=== PATIENT | female | born 2000 | race Two or more races ===

== ENCOUNTER 2024-09-07 12:20 | Emergency (ER) | payer OTHER, SELFPAY ==
[2024-09-07 12:30] VITALS: BP 139/94; PULSE 98; RESP 18; TEMP 37.1; O2SAT 97; BMI 48.4
--- NOTE | 2024-09-07 12:34 | PD.EDRME ---
Rapid Medical Screening Exam RME Arrival date/time: 09/07/24 12:20 24-year-old female with no known medical history presents to the emergency room with a chief complaint of vaginal spotting and bilateral pelvic pain. Patient is currently 7 weeks she is a G1, P0. I have greeted and performed a focused initial assessment of this patient. A comprehensive ED assessment and evaluation of the patient, analysis of all test results, and completion of the medical decision making process will be conducted by additional ED providers. Chief Complaint: General Adult/Misc Complain Vital signs: Vital Signs Temperature 98.7 F 09/07/24 12:30 Pulse Rate 98 09/07/24 12:30 Respiratory Rate 18 09/07/24 12:30 Blood Pressure 139/94 H 09/07/24 12:30 Pulse Oximetry (%) 97 09/07/24 12:30 Oxygen Delivery Method Room Air 09/07/24 12:30 Vital signs reviewed by provider: Yes
--- NOTE | 2024-09-07 13:09 | XR_ITS ---
Examination: OB Transvaginal ultrasound of the pelvis, complete Technique: Transvaginal sonographic images pelvis performed using jang scale imaging Exam date and time: September 07, 2024 1311 hours INDICATIONS: Vaginal bleeding today, early by history. FINDINGS: Uterus 10.1 cm intrauterine gestational sac 0.8 cm corresponds to 5 weeks 4 days gestational age No pole, no cardiac activity Right ovary 3.0 cm arterial flow Left ovary 3.1 cm arterial flow IMPRESSION: Intrauterine empty gestational sac corresponding to 5 weeks 4 days gestational age Recommend short-term follow-up transvaginal pelvic viability sonography to confirm.
[2024-09-07 13:40] LABS: Alanine Aminotransferase 30 U/L (10-49); Albumin, Serum 4.6 gm/dL (3.5-5.0); Albumin/Globulin Ratio 1.6 (1.2-2.2); Alkaline Phosphatase 80 U/L (46-116); Anion Gap 6 (7-16); Aspartate Amino Transferase 24 U/L (0-34); BUN/Creatinine Ratio 15 Ratio (12-20); Bilirubin,Total 1.6 mg/dL (0.3-1.2); Blood Urea Nitrogen 12 mg/dL (9-23); Calcium 8.8 mg/dL (8.3-10.6); Calcium (Corrected) 8.8 mg/dL (8.5-10.1); Carbon Dioxide 25.2 mMol/L (20.0-31.0); Chloride 106 mMol/L (98-107); Creatinine (Component) 0.8 mg/dL (0.6-1.3); Estimated Creatinine Clearance 161.9 mL/min (>60); Globulin 2.9 gm/dL (2.3-3.5); Glucose 96 mg/dL (74-106); Osmolality,Calculated 273 (275-295); Sodium 137 mMol/L (136-145); Total Protein 7.5 gm/dL (5.7-8.2); eGFR > 60 See Note
[2024-09-07 13:47] LABS: Basophils % (Auto) 0 % (0-2.5); Eosinophils # (Auto) 0.1 Thou/mm3 (0.0-0.5); Eosinophils % (Auto) 1 % (0-10); Hematocrit 37.2 % (36.0-46.0); Hemoglobin 12.4 g/dL (12.0-16.0); Immature Granulocytes % (Auto) 0 % (0-0); Immature Granulocytes Auto 0.03 Thou/mm3 (0.00-0.00); Lymphocytes # (Auto) 1.9 Thou/mm3 (1.0-4.8); Lymphocytes % (Auto) 20 % (10-50); Mean Corpuscular HGB Conc 33.3 g/dl (31.0-37.0); Mean Corpuscular Volume 75 fL (80-100); Monocytes # (Auto) 0.6 Thou/mm3 (0.0-0.8); Monocytes % (Auto) 6 % (0-12); Neutrophils # (Auto) 6.7 Thou/mm3 (1.8-7.7); Neutrophils % (Auto) 72 % (37-80); Nucleated Red Blood Cell % 0 /100 WBC (0); Platelet Count 336 Thou/mm3 (140-440); RDW Standard Deviation 45.5 fL (36.4-46.3); Red Blood Count 4.96 Miln/mm3 (4.00-5.20); White Blood Count 9.3 Thou/mm3 (3.6-11.0)
[2024-09-07 13:53] LABS: Beta HCG,Quantitative 5237 mIU/mL (<5.0)
[2024-09-07 14:02] LABS: Collection Type, Urine Clean Catch
[2024-09-07 14:16] LABS: Bilirubin,Urine Negative (Negative); Blood,Urine 3+ (Negative); Clarity,Urine Clear (Clear/Hazy); Color,Urine Lt-Yellow (Lt Yel-Yel); Glucose, Urine Negative (Negative); Ketones,Urine Trace (Negative); Leukocyte Esterase,Urine Negative (Negative); Nitrite,Urine Negative (Negative); PH,Urine 6.5 (5.0-7.0); Protein,Urine Trace (Neg - Trace); RBC,Urine 2 /hpf (0-3); Specific Gravity,Urine 1.014 (1.001-1.035); Squamous Epithelial Cell,Urine 1 /hpf (0-5); Urobilinogen,Urine Negative mg/dL (0.0-1.0); WBC,Urine 4 /hpf (0-5)
--- NOTE | 2024-09-07 18:19 | EDNOTE_ITS ---
ED General RME/HPI General Chief complaint: General Adult/Misc Complain Stated complaint: Cramping and spotting for 2 hours 7 weeks Time Seen by Provider: 09/07/24 17:52 Arrival date/time: 09/07/24 12:20 24-year-old female with no known medical history presents to the emergency room with a chief complaint of vaginal spotting and bilateral pelvic pain. Patient is currently 7 weeks she is a G1, P0. Limitations: no limitations RME / HPI RME / HPI narrative: 09/07/24 12:20 24-year-old female with no known medical history presents to the emergency room with a chief complaint of vaginal spotting and bilateral pelvic pain. Patient is currently 7 weeks she is a G1, P0. I have greeted and performed a focused initial assessment of this patient. A comprehensive ED assessment and evaluation of the patient, analysis of all test results, and completion of the medical decision making process will be conducted by additional ED providers. Related Data Allergies Allergy/AdvReac Type Severity Reaction Status Date / Time vancomycin Allergy Verified 09/07/24 12:22 Review of Systems Review of Systems Systems Reviewed: All systems reviewed, normal except as documented Constitutional Constitutional: Reports system reviewed and no additional complaints, except as documented, Denies fever(s) and Denies headache(s) Eyes Eyes: Reports system reviewed and no additional complaints, except as documented and Denies blurry vision ENT Ears, Nose, Mouth, and Throat: Reports system reviewed and no additional complaints, except as documented, Denies headache(s), Denies nasal congestion and Denies nasal discharge Cardiovascular Cardiovascular: Reports system reviewed and no additional complaints, except as documented, Denies chest pain and Denies dyspnea Respiratory Respiratory: Reports system reviewed and no additional complaints, except as documented, Denies chest congestion, Denies cough and Denies dyspnea Gastrointestinal Gastrointestinal: Reports system reviewed and no additional complaints, except as documented and Denies abdominal pain Genitourinary Genitourinary: Reports system reviewed and no additional complaints, except as documented, Reports abnormal vaginal bleeding and Reports pelvic pain Integumentary/Breasts Skin/Breast: Reports system reviewed and no additional complaints, except as documented and Denies rash Neurologic Neurologic: Reports system reviewed and no additional complaints, except as documented, Reports as per HPI and Denies headache(s) Past Medical History Social History SMOKING STATUS: Never smoker ED Exam General Limitations: Present no limitations General appearance: Present alert and in no apparent distress Head Head exam: Present atraumatic and normocephalic Eye Eye exam: Present normal appearance, PERRL and EOMI; Absent conjunctival injection ENT ENT exam: Present normal exam, normal oropharynx and mucous membranes moist Neck Neck exam: Present normal inspection, full ROM and trachea midline Chest Chest inspection: Present normal inspection and symmetric chest wall rise Respiratory Respiratory exam: Present normal lung sounds bilaterally; Absent respiratory distress Cardiovascular Cardiovascular exam: Present regular rate, normal rhythm and normal heart sounds Abdominal Exam Abdominal exam: Present soft and normal bowel sounds; Absent distention, tenderness, guarding, rebound or rigidity Extremities Exam Extremities exam: Present normal inspection and full ROM Back Exam Back exam: Present normal inspection and full ROM Neurological Exam Neurological exam: Present alert, oriented X3 and CN II-XII intact Psychiatric Psychiatric exam: Present normal affect and normal mood Skin Skin exam: Present warm, dry, intact and normal color Course Quality Measures none Orders Category Date Time Status US OB transvaginal Stat Exams 09/07/24 13:09 Completed ABO/RH Type Stat Lab 09/07/24 12:46 Completed Beta HCG,Quantitative Stat Lab 09/07/24 12:46 Completed CBC Stat Lab 09/07/24 12:46 Completed CMP [Comprehensive Metabolic Panel] Stat Lab 09/07/24 12:46 Completed UA [Urinalysis] Stat Lab 09/07/24 13:40 Completed Vital Signs Vital signs: Vital Signs Temperature 98.7 F 09/07/24 12:30 Pulse Rate 98 09/07/24 12:30 Respiratory Rate 18 09/07/24 12:30 Blood Pressure 139/94 H 09/07/24 12:30 Pulse Oximetry (%) 97 09/07/24 12:30 Oxygen Delivery Method Room Air 09/07/24 12:30 O2 saturation 97% on room air within normal limits Discharge Plan Plan Patient Disposition: HOME (Self Care) Discharge Disposition comment: Stable Prescriptions/Referrals Referrals: Malika Brunson PA-C [Primary Care Provider] - 09/10/24 Problem List Clinical Impression: , threatened Patient/Caregiver Discharge Instructions Education Materials: ED Possible Miscarriage ... Additional Instructions: Please follow-up in 5 to 7 days for repeat lab work and ultrasound for worsening symptoms or concerns return immediately Print Language: Italian Stand Alone Forms: [employer] Info., Work/School Release, Patient Portal Info Letter PA/ROMIE Supervising Physician KI/ROMIE Supervising Physician: Dr. benedict MDM Narrative MDM hospital course (for use when minimal MDM required): 24-year-old female with no known medical history presents to the emergency room with a chief complaint of vaginal spotting and bilateral pelvic pain. Patient is currently 7 weeks she is a G1, P0. On exam patient well-appearing patient is not appear ill or toxic no acute distress Lab work and imaging reviewed by me no acute emergent findings noted Explained to the patient she needs to have repeat lab work and imaging in 5 to 7 days for worsening symptoms return immediately ???Contact patient after discharge explained to her that she has a negative if she requires RhoGAM instructed the patient to return for repeat dose patient states that she will return and understands the reason for returning. Clinical Information Provided by: patient Medical Records reviewed None Meds/Rx considered, not ordered None Labs/Rad/Tests considered, not ordered Describe: Ordered and reviewed by me Chronic Illness/Social Conditions which may negatively complicate care or outcome(s)-explain: None or not applicable EKG EKG not done Labs Labs: Interpreted by me Imaging Imaging Interpretation(s): Reviewed by me Medication Administration(s) none Diagnosis Differential Diagnosis ED Complaint MDM: Missed , threatened , vaginal bleeding
== END 2024-09-07 18:28 | disposition home or self-care (01) ==
PROVIDERS: Nurse Practitioner Family; Emergency Provider Family Medicine; PCP Physician Assistant
DX: O20.0 Threatened abortion (principal); Z3A.01 Less than 8 weeks gestation of pregnancy
CPT/HCPCS: 36415; 76817; 80053; 81001; 84702; 85025; 86900; 86901; 99284

== ENCOUNTER 2024-09-08 08:10 | Emergency (ER) | payer OTHER, SELFPAY ==
--- NOTE | 2024-09-08 08:17 | PD.EDADULT ---
ED General RME/HPI General Chief complaint: General Adult/Misc Complain Stated complaint: NEEDS RHOGAM SHOT Time Seen by Provider: 09/08/24 08:11 Arrival date/time: 09/08/24 08:10 24-year-old female who was found to be at last visit presents department today for RhoGAM injection I saw the patient yesterday and instructed to return today for RhoGAM injection Limitations: no limitations Related Data Allergies Allergy/AdvReac Type Severity Reaction Status Date / Time vancomycin Allergy Verified 09/08/24 08:12 Review of Systems Review of Systems Systems Reviewed: All systems reviewed, normal except as documented Constitutional Constitutional: Reports system reviewed and no additional complaints, except as documented, Denies fever(s) and Denies headache(s) Eyes Eyes: Reports system reviewed and no additional complaints, except as documented and Denies blurry vision ENT Ears, Nose, Mouth, and Throat: Reports system reviewed and no additional complaints, except as documented, Denies headache(s), Denies nasal congestion and Denies nasal discharge Cardiovascular Cardiovascular: Reports system reviewed and no additional complaints, except as documented, Denies chest pain and Denies dyspnea Respiratory Respiratory: Reports system reviewed and no additional complaints, except as documented, Denies chest congestion, Denies cough and Denies dyspnea Gastrointestinal Gastrointestinal: Reports system reviewed and no additional complaints, except as documented and Denies abdominal pain Genitourinary Genitourinary: Reports system reviewed and no additional complaints, except as documented and Reports abnormal vaginal bleeding Integumentary/Breasts Skin/Breast: Reports system reviewed and no additional complaints, except as documented and Denies rash Neurologic Neurologic: Reports system reviewed and no additional complaints, except as documented, Reports as per HPI and Denies headache(s) Past Medical History Social History SMOKING STATUS: Never smoker ED Exam General Limitations: Present no limitations General appearance: Present alert and in no apparent distress Head Head exam: Present atraumatic Eye Eye exam: Present normal appearance, PERRL and EOMI ENT ENT exam: Present normal exam, normal oropharynx and mucous membranes moist Neck Neck exam: Present normal inspection, full ROM and trachea midline Chest Chest inspection: Present normal inspection and symmetric chest wall rise Respiratory Respiratory exam: Present normal lung sounds bilaterally Cardiovascular Cardiovascular exam: Present regular rate, normal rhythm and normal heart sounds Abdominal Exam Abdominal exam: Present soft and normal bowel sounds; Absent distention, tenderness, guarding, rebound or rigidity Extremities Exam Extremities exam: Present normal inspection and full ROM Back Exam Back exam: Present normal inspection and full ROM Neurological Exam Neurological exam: Present alert, oriented X3 and CN II-XII intact Psychiatric Psychiatric exam: Present normal affect and normal mood Skin Skin exam: Present warm, dry, intact and normal color Course Quality Measures none Orders Category Date Time Status Administer Rhogam NOW Care 09/08/24 08:11 Completed RHOGAM [Rho(D) Immune Globulin] Stat Lab 09/08/24 08:54 Completed Type and Screen Stat Lab 09/08/24 08:54 Completed Vital Signs Vital signs: Vital Signs Temperature 99.2 F 09/08/24 08:19 Pulse Rate 85 09/08/24 08:19 Respiratory Rate 16 09/08/24 08:19 Blood Pressure 143/92 H 09/08/24 08:19 Pulse Oximetry (%) 97 09/08/24 08:19 Oxygen Delivery Method Room Air 09/08/24 08:19 O2 saturation 97% on room air within normal limits Discharge Plan Plan Patient Disposition: HOME (Self Care) Discharge Disposition comment: Stable Problem List Clinical Impression: , threatened, Need for rhogam due to Rh negative mother Patient/Caregiver Discharge Instructions Education Materials: ED Possible Miscarriage ... Additional Instructions: Please follow up with your primary care doctor in the next 24-48hrs for any worsening symptoms return here immediately Please inform your WORD PROCESSING OPERATOR that you received RhoGAM injection in the emergency department Print Language: Vietnamese Stand Alone Forms: [employer] Info., Patient Portal Info Letter PA/ASSURANCE MANAGER Supervising Physician PA/ASSURANCE MANAGER Supervising Physician: dr benedict MDM Narrative MDM hospital course (for use when minimal MDM required): 24-year-old female who was found to be at last visit presents department today for RhoGAM injection I saw the patient yesterday and instructed to return today for RhoGAM injection On exam patient well-appearing patient is not appear toxic in no acute distress Patient given RhoGAM injection and discharged home Patient struck to follow-up with WORD PROCESSING OPERATOR soon as possible for worsening symptoms return immediately Clinical Information Provided by: none Medical Records reviewed [facility] Meds/Rx considered, not ordered None Labs/Rad/Tests considered, not ordered Describe: Ordered Chronic Illness/Social Conditions which may negatively complicate care or outcome(s)-explain: None or not applicable EKG EKG not done Labs Labs: Interpreted by me Imaging Imaging interpretation: none or see narrative above Medication Administration(s) none Diagnosis Differential Diagnosis ED Complaint MDM: Negative blood type, missed , threatened
[2024-09-08 08:19] VITALS: BP 143/92; PULSE 85; RESP 16; TEMP 37.3; O2SAT 97; BMI 49.8
[2024-09-08 11:45] VITALS: BP 150/92; PULSE 77; RESP 19; TEMP 37.2
--- NOTE | 2024-09-08 12:30 | PC.NURSE ---
1210 Rhogam given to R gluteus collin see TAR
[2024-09-08 12:32] VITALS: BP 142/81; PULSE 75; RESP 17; TEMP 36.9; O2SAT 99
== END 2024-09-08 12:39 | disposition home or self-care (01) ==
LOC: SERX 08:24
PROVIDERS: Emergency Provider Family Medicine; PCP Physician Assistant
DX: O26.899 Other specified pregnancy related conditions, unspecified trimester (principal); O20.0 Threatened abortion; Z67.11 Type A blood, Rh negative; Z3A.00 Weeks of gestation of pregnancy not specified
CPT/HCPCS: 36415; 86850; 86900; 86901; 99283; J2790

== ENCOUNTER 2024-11-20 14:48 | Outpatient (AMB) | payer OTHER, SELFPAY ==
[2024-11-20 15:05] VITALS: BP 121/81; PULSE 90; RESP 18; TEMP 36.6; O2SAT 98; BMI 53.1
--- NOTE | 2024-11-20 15:05 | AMB.OBVISIT ---
Vital Signs 11/20/24 15:05 Height 1.7 m Height Method Stated Weight 153.938 kg Weight Measurement Method Standing Scale BMI 53.1 BP 121/81 Blood Pressure Source Automatic Cuff Blood Pressure Location Right Upper Arm Position Sitting Respiration 18 Pulse 90 Pulse Source Monitor Temp 97.8 F Temp Source Temporal Artery Scan Pulse Oximetry (%) 98 Oxygen Delivery Method Room Air Allergies/Home Meds Allergies & Medications Allergies vancomycin Allergy (Verified 11/20/24 15:14) Medication Reconciliation No Known Home Medications 11/20/24 [History Confirmed 11/20/24] Intake Visit Data Collection New Patient or Established: Established Patient (seen at [facility] within 3 years) Reason for Visit:: OBI Seen by Clinical Staff ONLY (RN/MA): No 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
--- NOTE | 2024-11-20 16:29 | AMB.OBINITIA ---
Vital Signs 11/20/24 15:05 11/20/24 16:32 Height 1.7 m Height Method Stated Weight 153.938 kg Weight Measurement Method Standing Scale BMI 53.1 BP 121/81 121/81 Blood Pressure Source Automatic Cuff Blood Pressure Location Right Upper Arm Position Sitting Respiration 18 18 Pulse 90 90 Pulse Source Monitor Temp 97.8 F 97.8 F Temp Source Temporal Artery Scan Pulse Oximetry (%) 98 98 Oxygen Delivery Method Room Air Allergies/Home Meds Allergies & Medications Allergies vancomycin Allergy (Verified 11/20/24 15:14) Medication Reconciliation aspirin 81 mg tablet,delayed release (Adult Aspirin Regimen) 81 mg PO QDAY #60 tabs 11/20/24 [Rx] Intake Visit Data Collection New Patient or Established: Established Patient (seen at [facility] within 3 years) Reason for Visit:: [place] Seen by Clinical Staff ONLY (RN/MA): No Marine Engine Driver Required: No Do You Feel Safe at Home: Yes Authorities Contacted: N/A PCP or OBGYN visit in last 3 months: Yes Date of Last PCP or OBGYN visit: 09/08/24 Hx Now: Yes Are you currently on any form of Control: No Pain Present Currently: No Pain Scale Used: Laguerre-Kay/Numerical Pain scale:: 0 Smoking Status Smoking Status: Never smoker Questionnaires Covid-19 Vaccine Questionnaire Has patient been vacinated for Covid-19 Have you been vacinated for Covid-19: No PHQ-9 PHQ-2 Over the last 2 weeks, how often have you been bothered by any of the following problems? 1. Little interest or pleasure in doing things: not at all 2. Feeling down, depressed, or hopeless: not at all Total score: 0 PHQ-9 3. Trouble falling or staying asleep, or sleeping too much: Not at all 4. Feeling tired or having little energy: Not at all 5. Poor appetite or overeating: Not at all 6. Feeling bad about yourself - or that you are a failure or have let yourself or your family down: Not at all 7. Trouble concentrating on things, such as reading the newspaper or watching television: Not at all 8. Moving or speaking so slowly that other people could have noticed? - Or the opposite - being so fidgety or restless that you have been moving around a lot more than usual: not at all 9. Thoughts that you would be better off or of hurting yourself in some way: Not at all Total score: 0 If you checked off any problems, how difficult have these problems made it for you to do your work, take care of things at home, or get along with other people?: not difficult at all Source: Developed by Drs. Teddy Hester, Indira Polk, Myke Guerrero and colleagues, with an educational jacque from [employer]. Depression screen completed yes Social History Living Situation History Marital Status: Lives With: Family Housing: House Tobacco History Smoking Status: Never smoker Second Hand Smoke Exposure: No Alcohol History Alcohol Intake: Never Domestic Abuse History Do You Feel Safe at Home: Yes History of Present Illness HPI Narrative This is a 24-year-old 1 para 0 for OBI. Patient previously was being seen all [facility] for her initial appointments. So she is transferring care. History of irregular menses her last. Was July 14, 2024. Patient had a an ultrasound and October 10, 2024. Patient was 10 weeks 6 and this change due date to May 02, 2025. Patient denies social habits. Denies surgery. Denies chronic illnesses. Patient has been to the ER twice for early bleeding. She is Rh- so she was given RhoGAM. Patient is taking her prenatals and vitamin D. I ordered a low-dose baby aspirin for patient to start. Patient had a Pap smear that was normal. And there was positive cocci on that and clue cells. Her hemoglobin A1c was 5.8 patient had a early 1 hour Glucola that was 111. As I mentioned she is antibody screen negative and Rh-. Her hemoglobin A1c was negative HIV negative and hemoglobin B was negative. She had a negative drug screen. Her GC and Chlamydia were negative. RPR nonreactive. Rubella immune. And cystic fibrosis screen and spinal muscular atrophy screen were both negative. Patient declined maternity screen at this time and she also has declined AFP for now. Denies leaking fluid. Denies bleeding. Denies cramping. She reports light movement. 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 OB Initial Visit OB Flowsheet OB Flowsheet Initial Weight: Not Recorded Date <del>?</del> EGA Weight BP Alb Glu CTX Pres Fundal ht FHR Mov Dilation Station Effacement Hx Notes Visit Note 11/20/24 <del>?</del> 16w 5d 153.938 kg 121/81 121/81 absent unknown 17 156 active 26-week 1 para 0 for OBI. Patient is a transfer from [facility] to [facility] with records. She had an ER visit for bleeding and patient was given RhoGAM x 1. She denies bleeding now. 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 Reports slight movement Schedule anatomy scan with MFM. Start low-dose baby aspirin. Discussed SAB and labor precautions. Increase fluids. I discussed and offered NIPT and AFP. Patient declined at this time but she will review information and make a decision. Continue prenatals increase fluids return in 4 weeks OB check Menstrual History Menstrual reliability: definite Flow: normal Menstrual regularity: regular Monthly: Yes Age at menarche: 12 On control pills at conception: No OB History : 1 Infection History & Risk Evaluation History of STDs: none HIV risk evaluation: low risk Hepatitis B risk evaluation: low risk Patient or partner has history of Genital Herpes: No Varicella/chicken pox status: unknown Genetic Screening & History Genetic Screening/Teratology Counseling - Includes patient, baby's father, or anyone in either family with: 1. Patient's age 35 years or older as of estimated date of delivery: No 2. Thalassemia (Chinese, Kyrgyz, Mediterranean, or Background); MCV less than 80: No 3. Neural Tube Defect (Meningomyelocele, Spina Bifida, or Anencephaly): No 4. Congenital Heart Defect: No 5. Down Syndrome: No 6. Audi-Sachs (Ashkenazi Baptism, Cajun, Cay[place] Islander Luxembourger): No 7. Nancy Disease (Ashkenazi Baptism): No 8. Familial Dysautonomia (Ashkenazi Baptism): No 9. Sickle Cell Disease or Trait (): No 10. Hemophilia or other blood disorders: No 11. Muscular Dystrophy: No 12. Cystic Fibrosis: No 13. Nicholas's Chorea: No 14. Mental Retardation/Autism: No 15. Other inherited genetic or chromosomal disorder: No 16. Maternal Metabolic Disorder (EG,TYPE 1 Diabetes, PKU): No 17. Patient or baby's father had a child with defects not listed above: No 18. Recurrent loss or a stillbirth: No 19. Medications (including supplements, vitamins, herbs or otc drugs)/illicit/recreational drugs/alcohol since last menstrual period: No 20. Any other: No Infection History 1. Live with someone with TB or exposed to TB: No 2. Rash or viral illness since last menstrual period: No 3. Hepatitis B,C: No Other (see comments) Source: [employer] Review of Systems Review of Systems Systems Reviewed: All systems reviewed, normal except as documented Exam General Limitations: no limitations General Appearance: alert, in no apparent distress, comfortable, cooperative, healthy appearing, well developed and well groomed Head Head exam: atraumatic, normocephalic and normal inspection Chest Chest inspection: Present normal inspection and symmetric chest wall rise Resp Respiratory exam: Present normal lung sounds bilaterally Card Cardiovascular exam: Present regular rate, normal rhythm and normal heart sounds Abdominal Abdominal exam: Present soft and normal bowel sounds Psych Psychiatric exam: Present normal affect and normal mood Office Procedures OB Clinic LOC & Office Proc's Nursing/Assessment Patient Status: Established Patient OB Clinic Nursing Assessment: Medication Reconciliation, Update PMH in EMR and Vital Signs OB Clinic Coordination of Care: Complex Care and Chronic Disease 1-5, Consent,records obtained, informed consent, Education Simp Pt/Fam, Lab and Imaging orders and Staff clarify orders Special Needs: Heart tones Established Patient Charge Established Patient Point Assignment: 130 Established Patient Point Charge: EP Level 4 (120-155) Assessment & Plan Diagnosis / Problem List (1) Encounter for supervision of high risk in second trimester, antepartum: Status: Acute (2) Obesity affecting in second trimester: Status: Acute Qualifiers: Obesity type affecting : other obesity due to excess calories Qualified Code(s): O99.212 - Obesity complicating , second trimester; E66.09 - Other obesity due to excess calories Plan Schedule [facility] at [facility]. Increase fluids. Start low-dose baby aspirin I gave her prescription. Continue prenatals. Increase fluids. Consider light duty note next visit for patient regarding smoke where she works discussed. Discussed SAB precautions return in 4 weeks OB Additional Plan Follow Up: 4 Weeks (obc)
[2024-11-20 16:32] VITALS: BP 121/81; PULSE 90; RESP 18; TEMP 36.6; O2SAT 98
== END 2024-11-20 15:47 | disposition home or self-care (01) ==
LOC: HODSOBC 14:48
PROVIDERS: Supervising Provider Advanced Practice Midwife; Visit Provider Advanced Practice Midwife
DX: O09.892 Supervision of other high risk pregnancies, second trimester (principal); O99.212 Obesity complicating pregnancy, second trimester; Z3A.16 16 weeks gestation of pregnancy; Z88.1 Allergy status to other antibiotic agents
CPT/HCPCS: 99214; G0463

== ENCOUNTER 2024-11-29 11:34 | Outpatient (AMB) | payer OTHER, SELFPAY ==
[2024-11-29 11:52] VITALS: BP 134/84; PULSE 98; RESP 18; TEMP 36.6; O2SAT 96; BMI 53.2
--- NOTE | 2024-11-29 11:52 | OBCLNT_ITS ---
Vital Signs 11/29/24 11:52 Height 1.7 m Height Method Stated Weight 153.881 kg Weight Measurement Method Standing Scale BMI 53.2 BP 134/84 H Blood Pressure Source Automatic Cuff Blood Pressure Location Left Upper Arm Position Sitting Respiration 18 Pulse 98 Pulse Source Monitor Temp 98 F Temp Source Oral Pulse Oximetry (%) 96 Oxygen Delivery Method Room Air Allergies/Home Meds Allergies & Medications Allergies vancomycin Allergy (Verified 11/29/24 11:53) Medication Reconciliation aspirin 81 mg tablet,delayed release (Adult Aspirin Regimen) 81 mg PO QDAY #60 tabs 11/20/24 [Rx Confirmed 11/29/24] nitrofurantoin monohydrate/macrocrystals 100 mg capsule (Macrobid) 100 mg PO BID 7 days #14 caps 11/29/24 [Rx] ondansetron HCl 8 mg tablet 8 mg PO Q8H #30 tabs 11/29/24 [Rx] Intake Visit Data Collection New Patient or Established: Established Patient (seen at [facility] within 3 years) Reason for Visit:: CARE Seen by Clinical Staff ONLY (RN/MA): No Clinical Informatics Physician Required: No Do You Feel Safe at Home: Yes Authorities Contacted: N/A PCP or OBGYN visit in last 3 months: Yes Hx Now: Yes Are you currently on any form of Control: No Pain Present Currently: Yes Pain Location: Head (HEADACHE) Pain Scale Used: Laguerre-Kay/Numerical Pain scale:: 6 Smoking Status Smoking Status: Never smoker Questionnaires Covid-19 Vaccine Questionnaire Has patient been vacinated for Covid-19 Have you been vacinated for Covid-19: Yes PHQ-9 PHQ-2 Over the last 2 weeks, how often have you been bothered by any of the following problems? 1. Little interest or pleasure in doing things: not at all 2. Feeling down, depressed, or hopeless: not at all Total score: 0 PHQ-9 3. Trouble falling or staying asleep, or sleeping too much: Not at all 4. Feeling tired or having little energy: Not at all 5. Poor appetite or overeating: Not at all 6. Feeling bad about yourself - or that you are a failure or have let yourself or your family down: Not at all 7. Trouble concentrating on things, such as reading the newspaper or watching television: Not at all 8. Moving or speaking so slowly that other people could have noticed? - Or the opposite - being so fidgety or restless that you have been moving around a lot more than usual: not at all 9. Thoughts that you would be better off or of hurting yourself in some way: Not at all Total score: 0 Source: Developed by Drs. Teddy Hester, Indira Polk, Myke Guerrero and colleagues, with an educational jacque from [employer]. Depression screen completed yes Social History Living Situation History Lives With: Family Housing: House Tobacco History Smoking Status: Never smoker Second Hand Smoke Exposure: No Alcohol History Alcohol Intake: Never Domestic Abuse History Do You Feel Safe at Home: Yes Care OB Visit Log OB Flowsheet Initial Weight: Not Recorded Date -?-?-?-?-?-?-?-?-?-?-?-?- EGA Weight BP Alb Glu CTX Pres Fundal ht FHR Mov Dilation Station Effacement Hx Notes Visit Note 11/20/24 -?-?-?-?-?-?-?-?-?-?-?-?- 16w 5d 153.938 kg 121/81 121/81 absent unknown 17 156 active 26-week 1 para 0 for OBI. Patient is a transfer from [facility] to [facility] with records. She had an ER visit for bleeding and patient was given RhoGAM x 1. She denies bleeding now. 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 Reports slight movement Schedule anatomy scan with MFM. Start low-dose baby aspirin. Discussed SAB and labor precautions. Increase fluids. I discussed and offered NIPT and AFP. Patient declined at this time but she will review information and make a decision. Continue prenatals increase fluids return in 4 weeks OB check 11/29/24 -?-?-?-?-?-?-?-?-?-?-?-?- 18w 0d 153.881 kg 134/84 absent unknown 18 156 absent Complains of increased vomiting every 3 hours and inability to stay at work. Denies SAB complaints. Denies signs or symptoms of PIH. Reports light movement. MFM appointment is pending. c/o dysuria and frequency Discussed comfort measures for nausea and vomiting. Dry diet. SAB precautions. Tylenol as needed. Reviewed PIH precautions. I ordered Zofran 8 mg every 8 hours as needed for nausea and vomiting. Notes for 2 missed days of work including today. Urine culture for UTI. Macrobid 100 twice daily x 7 days. Increase fluids as able. Return in 4 weeks OB check. aFP today., return in 4 week YOANA Calculator Estimated Delivery Date Method Current WG Current Estimate 05/02/25 Ultrasound #1 18w 0d Other Estimates 04/20/25 LMP (Uncertain) 19w 5d Notes Visit Date: 11/29/24 Last Updated by: Ivet Diaz CNM declined NIPT Visit Date: 11/20/24 Last Updated by: Ivet Diaz CNM 24 yo . irregular menses. lmp 07/14/24, 1st OB sono: 10/10/24: IUP 10w6, EDC 05/02/25, OB panel: Pap: neg, + clue and cocci/not tx, A-/ABS-. Rhogam given in ER. HBSAG-,HIV-, HC-, rub IMM, RPR::NR, GC/CT-, carrier screen: SMA/CF-, early 1 hr gtt: 111, a1c: 5.3., /335, [place]-. 11/20: Patient is RH-, Give RHOGAM at 28 week Office Procedures OB Clinic LOC & Office Proc's Nursing/Assessment Patient Status: Established Patient OB Clinic Nursing Assessment: Medication Reconciliation, Update PMH in EMR and Vital Signs OB Clinic Coordination of Care: Complex Care and Chronic Disease 1-5, Consent,records obtained, informed consent, Education Simp Pt/Fam, 1 Ins Authorization, Ref for ancillary service, Results/Orders obtained and Staff clarify orders Special Needs: Heart tones Miscellaneous Interventions: Blood/Urine Collection Established Patient Charge Established Patient Point Assignment: 195 Established Patient Point Charge: EP Level 5 (160-above) Assessment & Plan Diagnosis / Problem List (1) Obesity affecting in second trimester: Status: Acute Qualifiers: Obesity type affecting : other obesity due to excess calories Qualified Code(s): O99.212 - Obesity complicating , second trimester; E66.09 - Other obesity due to excess calories (2) Encounter for supervision of high risk in second trimester, antepartum: Status: Acute (3) Dysuria during in second trimester: Status: Acute Plan Urine culture today. aFP request form filled out. I gave patient a note to excuse from work from November 20 and today. Comfort measures for nausea and vomiting. Start Zofran 8 mg p.o. every 8 hours as needed for nausea. Increase fluids and discussed the use of cranberry or Azo. Continue baby aspirin daily. [facility] ultrasound is pending. Discussed labs with patient. Return in 4 weeks OB check Additional Plan Follow Up: 4 Weeks (obc)
== END 2024-11-29 12:26 | disposition home or self-care (01) ==
LOC: HODSOBC 11:34
PROVIDERS: Supervising Provider Advanced Practice Midwife; Visit Provider Advanced Practice Midwife
DX: O09.892 Supervision of other high risk pregnancies, second trimester (principal); O99.212 Obesity complicating pregnancy, second trimester; O21.9 Vomiting of pregnancy, unspecified; O26.892 Other specified pregnancy related conditions, second trimester; R30.0 Dysuria; O23.42 Unspecified infection of urinary tract in pregnancy, second trimester; Z3A.18 18 weeks gestation of pregnancy; Z53.29 Procedure and treatment not carried out because of patient's decision for other reasons; Z88.1 Allergy status to other antibiotic agents
CPT/HCPCS: 99215; G0463

== ENCOUNTER → 2024-11-29 | Outpatient (CLI) | payer OTHER, SELFPAY | END | disposition home or self-care (01) | LOC: COPL 12:36 | PROVIDERS: PCP Physician Assistant; Referring Provider Advanced Practice Midwife; Visit Provider Advanced Practice Midwife | DX: O26.892 Other specified pregnancy related conditions, second trimester (principal); R30.0 Dysuria; O09.92 Supervision of high risk pregnancy, unspecified, second trimester; Z3A.00 Weeks of gestation of pregnancy not specified | CPT/HCPCS: 87086 ==

== ENCOUNTER 2024-12-19 15:23 | Outpatient (AMB) | payer OTHER, SELFPAY ==
[2024-12-19 15:31] VITALS: BP 134/82; PULSE 87; RESP 18; TEMP 36.8; O2SAT 98; BMI 53.6
--- NOTE | 2024-12-19 15:31 | OBCLNT_ITS ---
Vital Signs 12/19/24 15:31 Height 1.7 m Height Method Stated Weight 154.845 kg Weight Measurement Method Standing Scale BMI 53.6 BP 134/82 H Blood Pressure Source Automatic Cuff Blood Pressure Location Left Upper Arm Position Sitting Respiration 18 Pulse 87 Pulse Source Monitor Temp 98.2 F Temp Source Oral Pulse Oximetry (%) 98 Oxygen Delivery Method Room Air Allergies/Home Meds Allergies & Medications Allergies vancomycin Allergy (Verified 12/19/24 15:44) Medication Reconciliation aspirin 81 mg tablet,delayed release (Adult Aspirin Regimen) 81 mg PO QDAY #60 tabs 11/20/24 [Rx Confirmed 12/19/24] ondansetron HCl 8 mg tablet 8 mg PO Q8H #30 tabs 11/29/24 [Rx Confirmed 12/19/24] Intake Visit Data Collection New Patient or Established: Established Patient (seen at [facility] within 3 years) Reason for Visit:: CARE Seen by Clinical Staff ONLY (RN/MA): No Costume Seamstress Required: No Do You Feel Safe at Home: Yes Authorities Contacted: N/A PCP or OBGYN visit in last 3 months: Yes Hx Now: Yes Are you currently on any form of Control: No Pain Present Currently: No Pain Scale Used: Laguerre-Kay/Numerical Pain scale:: 0 Smoking Status Smoking Status: Never smoker Questionnaires Covid-19 Vaccine Questionnaire Has patient been vacinated for Covid-19 Have you been vacinated for Covid-19: Yes PHQ-9 PHQ-2 Over the last 2 weeks, how often have you been bothered by any of the following problems? 1. Little interest or pleasure in doing things: not at all 2. Feeling down, depressed, or hopeless: not at all Total score: 0 PHQ-9 3. Trouble falling or staying asleep, or sleeping too much: Not at all 4. Feeling tired or having little energy: Not at all 5. Poor appetite or overeating: Not at all 6. Feeling bad about yourself - or that you are a failure or have let yourself or your family down: Not at all 7. Trouble concentrating on things, such as reading the newspaper or watching television: Not at all 8. Moving or speaking so slowly that other people could have noticed? - Or the opposite - being so fidgety or restless that you have been moving around a lot more than usual: not at all 9. Thoughts that you would be better off or of hurting yourself in some way: Not at all Total score: 0 Source: Developed by Drs. Teddy Hester, Indira Polk, Mkye Guerrero and colleagues, with an educational jacque from [employer] Depression screen completed yes Social History Living Situation History Lives With: Family Housing: House Tobacco History Smoking Status: Never smoker Second Hand Smoke Exposure: No Alcohol History Alcohol Intake: Never Domestic Abuse History Do You Feel Safe at Home: Yes Care OB Visit Log OB Flowsheet Initial Weight: Not Recorded Date -?-?-?-?-?-?-?-?-?-?-?-?- EGA Weight BP Alb Glu CTX Pres Fundal ht FHR Mov Dilation Station Effacement Hx Notes Visit Note 11/20/24 -?-?-?-?-?-?-?-?-?-?-?-?- 16w 5d 153.938 kg 121/81 121/81 absent unknown 17 156 active 26-week 1 para 0 for OBI. Patient is a transfer from [facility] to [facility] with records. She had an ER visit for bleeding and patient was given RhoGAM x 1. She denies bleeding now. 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. 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 Reports slight movement Schedule anatomy scan with MFM. Start low-dose baby aspirin. Discussed SAB and labor precautions. Increase fluids. I discussed and offered NIPT and AFP. Patient declined at this time but she will review information and make a decision. Continue prenatals increase fluids return in 4 weeks OB check 11/29/24 -?-?-?-?-?-?-?-?-?-?-?--?- 18w 0d 153.881 kg 134/84 absent unknown 18 156 absent Complains of increased vomiting every 3 hours and inability to stay at work. Denies SAB co mplaints. Denies signs or symptoms of PIH. Reports light movement. MFM appointment is pending. c/o dysuria and frequency Discussed comfort measures for nausea and vomiting. Dry diet. SAB precautions. Tylenol as needed. Reviewed PIH precautions. I ordered Zofran 8 mg every 8 hours as needed for nausea and vomiting. Notes for 2 missed days of work including today. Urine culture for UTI. Macrobid 100 twice daily x 7 days. Increase fluids as able. Return in 4 weeks OB check. aFP today., return in 4 week 12/19/24 -?-?-?-?-?-?-?-?-?-?-?-?- 20w 6d 154.845 kg 134/82 absent unknown 20 145 active refused NIPT/carrier screen. forgot to do ob panel. denies VB/LOF and UC. reporte + FM. boy. MFM pending f/u on mfm, OB p marianne with 3rd tri lab, A1c and CMP. discuss diet and weight. PTL ptecaution, rtc 4 week YOANA Calculator Estimated Delivery Date Method Current WG Current Estimate 05/02/25 Ultrasound #1 20w 6d Other Estimates 04/20/25 LMP (Uncertain) 22w 4d Notes Visit Date: 12/19/24 Last Updated by: Ivet Diaz CNM 24 yo ,. no Dates. 1st OB sono: 10/10/24: 10w6. EDC: 05/02/25 Visit Date: 11/29/24 Last Updated by: Ivet Diaz CNM declined NIPT Visit Date: 11/20/24 Last Updated by: Ivet Diaz CNM 24 yo . irregular menses. lmp 07/14/24, 1st OB sono: 10/10/24: IUP 10w6, EDC 05/02/25, OB panel: Pap: neg, + clue and cocci/not tx, A-/ABS-. Rhogam given in ER. HBSAG-,HIV-, HC-, rub IMM, RPR::NR, GC/CT-, carrier screen: SMA/CF-, early 1 hr gtt: 111, a1c: 5.3., /335, [place]-. 11/20: Patient is RH-, Give RHOGAM at 28 week Office Procedures OB Clinic LOC & Office Proc's Nursing/Assessment Patient Status: Established Patient OB Clinic Nursing Assessment: Medication Reconciliation, Update PMH in EMR and Vital Signs OB Clinic Coordination of Care: Complex Care and Chronic Disease 1-5, Consent,records obtained, informed consent, Education Simp Pt/Fam, 1 Ins Authorization, Lab and Imaging orders, Results/Orders obtained and Staff clarify orders Special Needs: Heart tones Established Patient Charge Established Patient Point Assignment: 150 Established Patient Point Charge: EP Level 4 (120-155) Assessment & Plan Diagnosis / Problem List (1) Obesity affecting in second trimester: Status: Acute Qualifiers: Obesity type affecting : severe obesity due to excess calories Qualified Code(s): O99.212 - Obesity complicating , second trimester; E66.01 - Morbid (severe) obesity due to excess calories (2) Encounter for supervision of high risk in second trimester, antepartum: Status: Acute Plan continue PNV and ASA, discuss diet and weight gain, hydrate, f/u with MFM sono, ob panel with 1hr gtt, A1c, cmp. otl precaution. patient declined NIPT and carrier screen. rtc 4 4 week obc Additional Plan Follow Up: 4 Weeks (obc)
== END 2024-12-19 16:07 | disposition home or self-care (01) ==
LOC: HODSOBC 15:23
PROVIDERS: Supervising Provider Advanced Practice Midwife; Visit Provider Advanced Practice Midwife
DX: O09.892 Supervision of other high risk pregnancies, second trimester (principal); O99.212 Obesity complicating pregnancy, second trimester; Z3A.20 20 weeks gestation of pregnancy; Z88.1 Allergy status to other antibiotic agents
CPT/HCPCS: 99214; G0463

== ENCOUNTER → 2025-01-21 | Outpatient (CLI) | payer OTHER, SELFPAY ==
[2025-01-21 10:08] LABS: Basophils # (Auto) 0.0 Thou/mm3 (0.0-0.2); Basophils % (Auto) 0 % (0-2.5); Eosinophils # (Auto) 0.2 Thou/mm3 (0.0-0.5); Eosinophils % (Auto) 2 % (0-10); Hematocrit 34.7 % (36.0-46.0); Hemoglobin 11.2 g/dL (12.0-16.0); Immature Granulocytes Auto 0.06 Thou/mm3 (0.00-0.00); Lymphocytes # (Auto) 1.4 Thou/mm3 (1.0-4.8); Lymphocytes % (Auto) 15 % (10-50); Mean Corpuscular HGB Conc 32.3 g/dl (31.0-37.0); Mean Corpuscular Hemoglobin 25.3 pg (25.0-35.0); Mean Corpuscular Volume 78 fL (80-100); Monocytes # (Auto) 0.6 Thou/mm3 (0.0-0.8); Monocytes % (Auto) 6 % (0-12); Neutrophils # (Auto) 7.3 Thou/mm3 (1.8-7.7); Neutrophils % (Auto) 76 % (37-80); Nucleated Red Blood Cell # 0.00 Thou/mm3 (0.00-0.00); Nucleated Red Blood Cell % 0 /100 WBC (0); Platelet Count 264 Thou/mm3 (140-440); RDW Standard Deviation 48.6 fL (36.4-46.3); Red Blood Count 4.43 Miln/mm3 (4.00-5.20); White Blood Count 9.5 Thou/mm3 (3.6-11.0)
[2025-01-21 10:31] LABS: Glucose Estimated Average 114 mg/dL (80-131); Hemoglobin A1C 5.6 % Hgb (4.8-6.0)
[2025-01-21 11:39] LABS: HCG,Qualitative Serum Positive
[2025-01-21 12:09] LABS: Beta HCG,Quantitative 7853 mIU/mL (<5.0); Glucose,1 Hour PP 50gm Dose 120 mg/dL (80-140); Thyroid Stimulating Hormone 1.23 uIU/mL (0.55-4.78)
== END | disposition home or self-care (01) ==
LOC: COPL 08:51
PROVIDERS: PCP Physician Assistant; Referring Provider Advanced Practice Midwife; Visit Provider Advanced Practice Midwife
DX: Z34.02 Encounter for supervision of normal first pregnancy, second trimester (principal)
CPT/HCPCS: 36415; 82950; 83036; 84443; 84702; 84703; 85025

== ENCOUNTER 2025-01-29 15:14 | Outpatient (AMB) | payer OTHER, SELFPAY ==
[2025-01-29 15:26] VITALS: BP 128/84; PULSE 108; RESP 20; TEMP 36.3; O2SAT 98; BMI 54.2
--- NOTE | 2025-01-29 15:26 | OBCLNT_ITS ---
Vital Signs 01/29/25 15:26 Height 1.7 m Height Method Stated Weight 156.716 kg Weight Measurement Method Standing Scale BMI 54.2 BP 128/84 Blood Pressure Source Automatic Cuff Blood Pressure Location Left Upper Arm Position Sitting Respiration 20 Pulse 108 H Pulse Source Monitor Temp 97.4 F Temp Source Oral Pulse Oximetry (%) 98 Oxygen Delivery Method Room Air Allergies/Home Meds Allergies & Medications Allergies vancomycin Allergy (Verified 01/29/25 15:27) Medication Reconciliation aspirin 81 mg tablet,delayed release (Adult Aspirin Regimen) 81 mg PO QDAY #60 tabs 11/20/24 [Rx Confirmed 01/29/25] ondansetron HCl 8 mg tablet 8 mg PO Q8H #30 tabs 11/29/24 [Rx Confirmed 01/29/25] Intake Visit Data Collection New Patient or Established: Established Patient (seen at [facility] within 3 years) Reason for Visit:: CARE Seen by Clinical Staff ONLY (RN/MA): No Paleobotanist Required: No Do You Feel Safe at Home: Yes Authorities Contacted: N/A PCP or OBGYN visit in last 3 months: Yes Hx Now: Yes Are you currently on any form of Control: No Pain Present Currently: No Pain Scale Used: Laguerre-Kay/Numerical Pain scale:: 0 Smoking Status Smoking Status: Never smoker Questionnaires Covid-19 Vaccine Questionnaire Has patient been vacinated for Covid-19 Have you been vacinated for Covid-19: Yes PHQ-9 PHQ-2 Over the last 2 weeks, how often have you been bothered by any of the following problems? 1. Little interest or pleasure in doing things: not at all 2. Feeling down, depressed, or hopeless: not at all Total score: 0 PHQ-9 3. Trouble falling or staying asleep, or sleeping too much: Not at all 4. Feeling tired or having little energy: Not at all 5. Poor appetite or overeating: Not at all 6. Feeling bad about yourself - or that you are a failure or have let yourself or your family down: Not at all 7. Trouble concentrating on things, such as reading the newspaper or watching television: Not at all 8. Moving or speaking so slowly that other people could have noticed? - Or the opposite - being so fidgety or restless that you have been moving around a lot more than usual: not at all 9. Thoughts that you would be better off or of hurting yourself in some way: Not at all Total score: 0 Source: Developed by Drs. Teddy Hester, Indira Polk, Myke Guerrero and colleagues, with an educational jacque from [employer]. Depression screen completed yes Social History Living Situation History Lives With: Family Housing: House Tobacco History Smoking Status: Never smoker Second Hand Smoke Exposure: No Alcohol History Alcohol Intake: Never Domestic Abuse History Do You Feel Safe at Home: Yes Care OB Visit Log OB Flowsheet Initial Weight: Not Recorded Date -?-?-?-?-?-?-?-?-?-?-?-?- EGA Weight BP Alb Glu CTX Pres Fundal ht FHR Mov Dilation Station Effacement Hx Notes Visit Note 11/20/24 -?-?-?-?-?-?-?-?-?-?-?-?- 16w 5d 153.938 kg 121/81 121/81 absent unknown 17 156 active 26-week 1 para 0 for OBI. Patient is a transfer from [facility] to [facility] with records. She had an ER visit for bleeding and patient was given RhoGAM x 1. She denies bleeding now. 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 Reports slight movement Schedule anatomy scan with MFM. Start low-dose baby aspirin. Discussed SAB and labor precautions. Increase fluids. I discussed and offered NIPT and AFP. Patient declined at this time but she will review information and make a decision. Continue prenatals increase fluids return in 4 weeks OB check 11/29/24 -?-?-?-?-?-?-?-?-?-?--?-?- 18w 0d 153.881 kg 134/84 absent unknown 18 156 absent Complains of increased vomiting every 3 hours and inability to stay at work. Denies SAB c omplaints. Denies signs or symptoms of PIH. Reports light movement. MFM appointment is pending. c/o dysuria and frequency Discussed comfort measures for nausea and vomiting. Dry diet. SAB precautions. Tylenol as needed. Reviewed PIH precautions. I ordered Zofran 8 mg every 8 hours as needed for nausea and vomiting. Notes for 2 missed days of work including today. Urine culture for UTI. Macrobid 100 twice daily x 7 days. Increase fluids as able. Return in 4 weeks OB check. aFP today., return in 4 week 12/19/24 -?-?-?-?-?-?-?-?-?-?-?-?- 20w 6d 154.845 kg 134/82 absent unknown 20 145 active refused NIPT/carrier screen. forgot to do ob panel. denies VB/LOF and UC. reporte + FM. boy. MFM pending f/u on mfm, OB p marianne with 3rd tri lab, A1c and CMP. discuss diet and weight. PTL ptecaution, rtc 4 week 01/29/25 -?-?-?-?-?-?-?-?-?-?-?-?- 26w 5d 156.716 kg 128/84 absent unknown 26 145 active Reports movement. Denies leaking, bleeding, contractions. Patient denies signs and symptoms of preeclampsia. Denies epigastric pain. Denies headache. Patient yanez s maternal- medicine appointment scheduled for February 18. Patient reports that she bought a blood pressure cuff and was taking her blood pressures at home several days ago. She states that she got several high readings and overall and did not know what to do. Keep ap pointment for maternal- medicine February 18. Discussed labor precautions. I reviewed normal parameters of blood pressure with patient. Discussed danger signs and symptoms and ER precautions. And I discussed signs symptoms of preeclampsia. Continue low-dose baby aspirin. Increase fluids. Patient was advised that should she check her blood pressure and the blood pressure is 140/90 she needs to go right to the ER. Return in 2 weeks for OB check and RhoGAM Keep appointment for materna l- medicine February 18. Discussed labor precautions. I reviewed normal parameters of blood pressure with patient. Discussed danger signs and symptoms and ER precautions. And I discussed signs symptoms of preeclampsia. Continue low-dose baby aspirin. Increase fluids. Patient was advised that should she check her blood pressure and the blood pressure is 140/90 she needs to go right to the ER. Return in 2 weeks for OB check and RhoGAM, Do PIH panel nv and 24 hr protien YOANA Calculator Estimated Delivery Date Method Current WG Current Estimate 05/02/25 Ultrasound #1 26w 5d Other Estimates 04/20/25 LMP (Uncertain) 28w 3d Notes Visit Date: 01/29/25 Last Updated by: Ivet Diaz CNM OB panel: A-, ABS-, RHOGAM given @ 16 week> 09/08/24 in ER, RPR::NR, rub Non imm, hbsag-,hiv-,HC-, GC/CT-UT-, 1 hr gtt: , A!; 5.6, pap: normal Patient refused NIPT/AFP, CF- Visit Date: 12/19/24 Last Updated by: Ivet Diaz CNM 24 yo ,. no Dates. 1st OB sono: 10/10/24: 10w6. EDC: 05/02/25 Visit Date: 11/29/24 Last Updated by: Ivet Diaz CNM declined NIPT Visit Date: 11/20/24 Last Updated by: Ivet Diaz CNM 24 yo . irregular menses. lmp 07/14/24, 1st OB sono: 10/10/24: IUP 10w6, EDC 05/02/25, OB panel: Pap: neg, + clue and cocci/not tx, A-/ABS-. Rhogam given in ER. HBSAG-,HIV-, HC-, rub IMM, RPR::NR, GC/CT-, carrier screen: SMA/CF-, early 1 hr gtt: 111, a1c: 5.3., /335, [place]-. 11/20: Patient is RH-, Give RHOGAM at 28 week Office Procedures OBC Clinic LOC & Office Proc's Nursing/Assessment Patient Status: Established Patient OB Clinic Nursing Assessment: Medication Reconciliation, Update PMH in EMR and Vital Signs OB Clinic Coordination of Care: Complex Care and Chronic Disease 1-5, Consent,records obtained, informed consent, Education Simp Pt/Fam, Lab and Imaging orders, Results/Orders obtained and Staff clarify orders Special Needs: Heart tones Established Patient Charge Established Patient Point Assignment: 135 Established Patient Point Charge: EP Level 4 (120-155) Assessment & Plan Diagnosis / Problem List (1) Obesity affecting in second trimester: Status: Acute Qualifiers: Obesity type affecting : severe obesity due to excess calories Qualified Code(s): O99.212 - Obesity complicating , second trimester; E66.01 - Morbid (severe) obesity due to excess calories (2) Encounter for supervision of high risk in second trimester, antepartum: Status: Acute Plan RhoGAM next visit. Do PIH panel with 24-hour protein. Continue low-dose baby aspirin. Reviewed ER precautions and signs symptoms of danger signs. Discussed PIH precautions and symptoms. Reviewed parameters for blood pressure. And patient advised to go to the ER if blood pressures are 140/90 or greater. Discussed labor precautions. And keep appointment 09/18/24 with [facility] Additional Plan Follow Up: 3 Weeks (obc)
== END 2025-01-29 16:05 | disposition home or self-care (01) ==
PROVIDERS: PCP Physician Assistant; Referring Provider Physician Assistant; Supervising Provider Advanced Practice Midwife; Visit Provider Advanced Practice Midwife
DX: O09.892 Supervision of other high risk pregnancies, second trimester (principal); O99.212 Obesity complicating pregnancy, second trimester; Z3A.26 26 weeks gestation of pregnancy; Z88.1 Allergy status to other antibiotic agents
CPT/HCPCS: 99214; G0463

== ENCOUNTER 2025-02-20 15:19 | Outpatient (AMB) | payer OTHER, SELFPAY ==
[2025-02-20 15:21] VITALS: BP 126/84; PULSE 101; RESP 20; TEMP 36.4; O2SAT 97; BMI 55.5
--- NOTE | 2025-02-20 15:21 | OBCLNT_ITS ---
Vital Signs 02/20/25 15:21 Height 1.7 m Height Method Stated Weight 160.628 kg Weight Measurement Method Standing Scale BMI 55.5 BP 126/84 Blood Pressure Source Automatic Cuff Blood Pressure Location Left Upper Arm Position Sitting Respiration 20 Pulse 101 H Pulse Source Monitor Temp 97.6 F Temp Source Oral Pulse Oximetry (%) 97 Oxygen Delivery Method Room Air Allergies/Home Meds Allergies & Medications Allergies vancomycin Allergy (Verified 02/22/25 18:48) Medication Reconciliation aspirin 81 mg tablet,delayed release (Adult Aspirin Regimen) 81 mg PO QDAY #60 tabs 11/20/24 [Rx Confirmed 02/22/25] vits no.130-ferrous fum 27 mg iron-folic acid 800 mcg tablet ( Vitamin) 1 tab PO QDAY 02/22/25 [History Confirmed 02/22/25] Intake Visit Data Collection New Patient or Established: Established Patient (seen at [facility] within 3 years) Reason for Visit:: CARE Seen by Clinical Staff ONLY (RN/MA): No Master Printer Required: No Do You Feel Safe at Home: Yes Authorities Contacted: N/A PCP or OBGYN visit in last 3 months: Yes Hx Now: Yes Are you currently on any form of Control: No Pain Present Currently: No Pain Scale Used: Laguerre-Kay/Numerical Pain scale:: 0 Smoking Status Smoking Status: Never smoker Immunizations Flu Vaccine in the Last 12 Months: No Flu Vaccine Exclusion Criteria: No Exclusion Criteria Questionnaires Covid-19 Vaccine Questionnaire Has patient been vacinated for Covid-19 Have you been vacinated for Covid-19: Yes PHQ-9 PHQ-2 Over the last 2 weeks, how often have you been bothered by any of the following problems? 1. Little interest or pleasure in doing things: not at all 2. Feeling down, depressed, or hopeless: not at all Total score: 0 PHQ-9 3. Trouble falling or staying asleep, or sleeping too much: Not at all 4. Feeling tired or having little energy: Not at all 5. Poor appetite or overeating: Not at all 6. Feeling bad about yourself - or that you are a failure or have let yourself or your family down: Not at all 7. Trouble concentrating on things, such as reading the newspaper or watching television: Not at all 8. Moving or speaking so slowly that other people could have noticed? - Or the opposite - being so fidgety or restless that you have been moving around a lot more than usual: not at all 9. Thoughts that you would be better off or of hurting yourself in some way: Not at all Total score: 0 Source: Developed by Drs. Teddy Hester, Indira Polk, Myke Guerrero and colleagues, with an educational jacque from [employer] Depression screen completed yes Social History Living Situation History Lives With: Family Housing: House Tobacco History Smoking Status: Never smoker Second Hand Smoke Exposure: No Alcohol History Alcohol Intake: Never Domestic Abuse History Do You Feel Safe at Home: Yes Care OB Visit Log OB Flowsheet Initial Weight: Not Recorded Date -?-?-?-?-?-?-?-?-?-?-?-?- EGA Weight BP Alb Glu CTX Pres Fundal ht FHR Mov Dilation Station Effacement Hx Notes Visit Note 11/20/24 -?-?-?-?-?-?-?-?-?-?-?-?- 16w 5d 153.938 kg 121/81 121/81 absent unknown 17 156 active 26-week 1 para 0 for OBI. Patient is a transfer from [facility] to [facility] with records. She had an ER visit for bleeding and patient was given RhoGAM x 1. She denies bleeding now. 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 Reports slight movement Schedule anatomy scan with MFM. Start low-dose baby aspirin. Discussed SAB and labor precautions. Increase fluids. I discussed and offered NIPT and AFP. Patient declined at this time but she will review information and make a decision. Continue prenatals increase fluids return in 4 weeks OB check 11/29/24 -?-?-?-?-?-?-?-?-?-?-?-?- 18w 0d 153.881 kg 134/84 absent unknown 18 156 absent Complains of increased vomiting every 3 hours and inability to stay at work. Denies SAB complaints. Denies signs or symptoms of PIH. Reports light movement. MFM appointment is pending. c/o dysuria and frequency Discussed comfort measures for nausea and vomiting. Dry diet. SAB precautions. Tylenol as needed. Reviewed PIH precautions. I ordered Zofran 8 mg every 8 hours as needed for nausea and vomiting. Notes for 2 missed days of work including today. Urine culture for UTI. Macrobid 100 twice daily x 7 days. Increase fluids as able. Return in 4 weeks OB check. aFP today., return in 4 week 12/19/24 -?-?-?-?-?-?-?-?-?-?-?-?- 20w 6d 154.845 kg 134/82 absent unknown 20 145 active refused NIPT/carrier screen. forgot to do ob panel. denies VB/LOF and UC. reporte + FM. boy. MFM pending f/u on mfm, OB p marianne with 3rd tri lab, A1c and CMP. discuss diet and weight. PTL ptecaution, rtc 4 week 01/29/25 -?-?-?-?-?-?-?-?-?-?-?-?- 26w 5d 156.716 kg 128/84 absent unknown 26 145 active Reports movement. Denies leaking, bleeding, contractions. Patient denies signs and symptoms of preeclampsia. Denies epigastric pain. Denies headache. Patient has maternal- medicine appointment scheduled for February 18. Patient reports that she bought a blood pressure cuff and was taking her blood pressures at home several days ago. She states that she got several high readings and overall and did not know what to do. Keep appointment for maternal- medicine February 18. Discussed labor precautions. I reviewed normal parameters of blood pressure with patient. Discussed danger signs and symptoms and ER precautions. And I discussed signs symptoms of preeclampsia. Continue low-dose baby aspirin. Increase fluids. Patient was advised that should she check her blood pressure and the blood pressure is 140/90 she needs to go right to the ER. Return in 2 weeks for OB check and RhoGAM Keep appointment for materna l- medicine February 18. Discussed labor precautions. I reviewed normal parameters of blood pressure with patient. Discussed danger signs and symptoms and ER precautions. And I discussed signs symptoms of preeclampsia. Continue low-dose baby aspirin. Increase fluids. Patient was advised that should she check her blood pressure and the blood pressure is 140/90 she needs to go right to the ER. Return in 2 weeks for OB check and RhoGAM, Do PIH panel nv and 24 hr protien 02/20/25 -?-?-?-?-?-?-?-?-?-?-?-?- 29w 6d 160.628 kg 126/84 absent 28 145 a ctive Reports movement. Patient did her third trimester labs. Results are pending. Results for [facility] are pending. Patient has a follow-up ultrasound and the end of the month. Keep appointment with maternal- medicine. RhoGAM given today. I will review the labs and her sono when I get the results. Discussed labor precautio ns schedule NST BPP to start at 32 weeks. Return in 3 weeks OB check YOANA Calculator Estimated Delivery Date Method Current WG Current Estimate 05/02/25 Ultrasound #1 30w 4d Other Estimates 04/20/25 LMP (Uncertain) 32w 2d 05/02/25 Manual 30w 4d final yoana: Notes Visit Date: 02/20/25 Last Updated by: Ivet Diaz CNM 02/20: RHOGAM today Reviewed history and notes with patient at visit, tracheostomy 2008 at 7 yo. patient was treated for an infection and became septic. She developed renal failure and needed dialysis. 24 hr urine: protein elevated: total volume: 2150. total protein: 71, urine total protein 24 hr: 1.5 gm. BP were mild. UPCR for 24 hr: 1.8. BMI: 57. referal made to Dr Lynch/[facility] for total patient care and management Visit Date: 01/29/25 Last Updated by: Ivet Diaz CNM OB panel: A-, ABS-, RHOGAM given @ 16 week> 09/08/24 in ER, RPR::NR, rub Non imm, hbsag-,hiv-,HC-, GC/CT-UT-, 1 hr gtt: , A!; 5.6, pap: normal Patient refused NIPT/AFP, CF- Visit Date: 12/19/24 Last Updated by: Ivet Diaz CNM 24 yo ,. no Dates. 1st OB sono: 10/10/24: 10w6. EDC: 05/02/25 Visit Date: 11/29/24 Last Updated by: Ivet Diaz CNM declined NIPT Visit Date: 11/20/24 Last Updated by: Ivet Diaz CNM 24 yo . irregular menses. lmp 07/14/24, 1st OB sono: 10/10/24: IUP 10w6, EDC 05/02/25, OB panel: Pap: neg, + clue and cocci/not tx, A-/ABS-. Rhogam given in ER. HBSAG-,HIV-, HC-, rub IMM, RPR::NR, GC/CT-, carrier screen: SMA/CF-, early 1 hr gtt: 111, a1c: 5.3., /335, UT-. 11/20: Patient is RH-, Give RHOGAM at 28 week Office Procedures OBC Clinic LOC & Office Proc's Nursing/Assessment Patient Status: Established Patient OB Clinic Nursing Assessment: Medication Reconciliation, Update PMH in EMR and Vital Signs OB Clinic Coordination of Care: Complex Care and Chronic Disease 1-5, Education Complex Pt/Fam, Consent,records obtained, informed consent, Lab and Imaging orders, Results/Orders obtained and Staff clarify orders Special Needs: Heart tones Established Patient Charge Established Patient Point Assignment: 140 Established Patient Point Charge: EP Level 4 (120-155) Office Meds Rhophylac 1,500 unit (300 mcg)/2 mL injection syringe Performing Provider: Ivet Diaz CNM Performing Location: [facility] Administered by: María Garcia MA on 02/20/25 16:13 Dose Route Admin Location Dispensed Lot Number Expiration Date Pack age [facility] Belt Changer 1,500 unit IM LEFT GLUTE 2 mL [id number] 11/24/26 05382-224-20 4 [id number] [employer] [facility] Assessment & Plan Diagnosis / Problem List (1) Encounter for supervision of high risk in third trimester, antepartum: Status: Acute (2) Obesity affecting in second trimester: Status: Acute Qualifiers: Obesity type affecting : severe obesity due to excess calories Qualified Code(s): O99.212 - Obesity complicating , second trimester; E 66.01 - Morbid (severe) obesity due to excess calories Plan RhoGAM 2 cc today. Discussed labor precautions. Continue to do low- carb diet and walk 40 minutes a day. Will review the labs and MFM results when we get them. Patient has a follow-up with MFM the end of the month. Return in 3 weeks OB check Additional Plan Follow Up: 3 Weeks (obc)
== END 2025-02-20 16:02 | disposition home or self-care (01) ==
LOC: HODSOBC 15:19
PROVIDERS: Supervising Provider Advanced Practice Midwife; Visit Provider Advanced Practice Midwife
DX: O09.893 Supervision of other high risk pregnancies, third trimester (principal); O26.893 Other specified pregnancy related conditions, third trimester; Z67.11 Type A blood, Rh negative; O99.213 Obesity complicating pregnancy, third trimester; Z3A.29 29 weeks gestation of pregnancy; Z88.1 Allergy status to other antibiotic agents
CPT/HCPCS: 99214; J3490; G0463; J2791

== ENCOUNTER 2025-02-22 16:37 | Observation (INO) | payer MEDICAID, SELFPAY ==
[2025-02-22] VITALS (39 sets, daily range): BP systolic 115–135; BP diastolic 59–75; PULSE 91–132; RESP 20–97; TEMP 37.1; O2SAT 92–99; BMI 56.9
[2025-02-22 17:20] LABS: Collection Type, Urine Clean Catch
[2025-02-22 17:30] LABS: Bilirubin,Urine Negative (Negative); Blood,Urine Trace (Negative); Clarity,Urine Clear (Clear/Hazy); Color,Urine Yellow (Lt Yel-Yel); Glucose, Urine Negative (Negative); Ketones,Urine Negative (Negative); Leukocyte Esterase,Urine Negative (Negative); Nitrite,Urine Negative (Negative); PH,Urine 7.0 (5.0-7.0); Protein,Urine 2+ (Neg - Trace); RBC,Urine 4 /hpf (0-3); Specific Gravity,Urine 1.020 (1.001-1.035); Squamous Epithelial Cell,Urine 3 /hpf (0-5); Urobilinogen,Urine Negative mg/dL (0.0-1.0); WBC,Urine 1 /hpf (0-5)
[2025-02-22 17:47] LABS: Creatinine,Random Urine 130 mg/dL (30-125); Protein Total, Random Urine 177 mg/dL (1-14)
[2025-02-22 17:52] LABS: Basophils # (Auto) 0.0 Thou/mm3 (0.0-0.2); Basophils % (Auto) 0 % (0-2.5); Eosinophils # (Auto) 0.1 Thou/mm3 (0.0-0.5); Eosinophils % (Auto) 1 % (0-10); Hematocrit 34.6 % (36.0-46.0); Hemoglobin 11.1 g/dL (12.0-16.0); Immature Granulocytes Auto 0.05 Thou/mm3 (0.00-0.00); Lymphocytes # (Auto) 1.0 Thou/mm3 (1.0-4.8); Lymphocytes % (Auto) 10 % (10-50); Mean Corpuscular HGB Conc 32.1 g/dl (31.0-37.0); Mean Corpuscular Hemoglobin 25.1 pg (25.0-35.0); Mean Corpuscular Volume 78 fL (80-100); Monocytes # (Auto) 0.7 Thou/mm3 (0.0-0.8); Monocytes % (Auto) 6 % (0-12); Neutrophils # (Auto) 8.7 Thou/mm3 (1.8-7.7); Neutrophils % (Auto) 82 % (37-80); Nucleated Red Blood Cell # 0.00 Thou/mm3 (0.00-0.00); Nucleated Red Blood Cell % 0 /100 WBC (0); Platelet Count 276 Thou/mm3 (140-440); RDW Standard Deviation 47.5 fL (36.4-46.3); Red Blood Count 4.43 Miln/mm3 (4.00-5.20); White Blood Count 10.5 Thou/mm3 (3.6-11.0)
[2025-02-22 18:11] LABS: INR 1.0 (0.9-1.3); Partial Thromboplastin Time 28.3 Seconds (22.0-36.0); Prothrombin Time 10.3 Seconds (9.0-12.2)
[2025-02-22 18:19] LABS: Alanine Aminotransferase 12 U/L (10-49); Albumin, Serum 4.3 gm/dL (3.5-5.0); Albumin/Globulin Ratio 1.9 (1.2-2.2); Alkaline Phosphatase 92 U/L (46-116); Anion Gap 11 (7-16); Aspartate Amino Transferase 13 U/L (0-34); BUN/Creatinine Ratio 12 Ratio (12-20); Bilirubin,Total 0.7 mg/dL (0.3-1.2); Blood Urea Nitrogen 7 mg/dL (9-23); Calcium 8.9 mg/dL (8.3-10.6); Calcium (Corrected) 8.9 mg/dL (8.5-10.1); Carbon Dioxide 22.9 mMol/L (20.0-31.0); Chloride 105 mMol/L (98-107); Creatinine (Component) 0.6 mg/dL (0.6-1.3); Estimated Creatinine Clearance 223.5 mL/min (>60); Globulin 2.3 gm/dL (2.3-3.5); Glucose 87 mg/dL (74-106); LDH (Lactate Dehydrogenase) 105 U/L (120-246); Osmolality,Calculated 274 (275-295); Potassium 4.6 mMol/L (3.4-5.1); Sodium 139 mMol/L (136-145); Total Protein 6.6 gm/dL (5.7-8.2); Uric Acid 4.7 mg/dL (3.1-7.8); eGFR > 60 See Note
[2025-02-22 18:51] LABS: Fibrinogen 767 mg/dL (175-375)
[2025-02-22] MEDS: BETAMET ACET/BETAMET NA PH (Celestone) 6 MG/ML VIAL 12 MG IM (19:19)
--- NOTE | 2025-02-22 19:57 | EVENTNT_ITS ---
Documentation for date of: 02/22/25 Event Note Event Note: The patient is a 24-year-old G1, P0 with a BMI of 57 and a current weight of approximately 325 pounds who came to triage because her blood pressure was elevated at home and 170/100. She is approximately 30 weeks . She was taking it because she stated her head felt fuzzy ,no right upper quadrant pain, changes in vision or severe headaches. Patient came to triage where her blood pressures were normal. Her preeclamptic workup was negative with the exception of a UPCR which was 1.36. This corresponds to 1.810 g of protein in 24 hours. As her blood pressures are normal, the plan was to give the patient IM betamethasone and have her come back in 24 hours. She was sent home with a jug to collect her urine for 24 hours. She is high risk for preeclampsia. She did have an ultrasound with [facility] for her structural survey at 20 weeks in [place] and has a follow-up ultrasound scheduled March 21. She will most likely need to be referred back to the maternal- medicine physicians to comanage the remainder of her or to completely take over her care. Signs of severe preeclampsia were given to the patient and the father the baby who is at bedside. She will follow-up in 24 hours to turn in her 24-hour urine jug and receive another dose of betamethasone.
== END 2025-02-22 19:43 | disposition home or self-care (01) ==
PROVIDERS: Admitting Provider Obstetrics & Gynecology; Visit Provider Obstetrics & Gynecology
DX: O26.893 Other specified pregnancy related conditions, third trimester (principal); Z3A.30 30 weeks gestation of pregnancy; R03.0 Elevated blood-pressure reading, without diagnosis of hypertension
CPT/HCPCS: 36415; 59025; 59899; 80053; 81001; 82570; 83615; 84156; 84550; 85025; 85384; 85610; 85730; 87086; 96372; J0702

== ENCOUNTER 2025-02-23 22:49 | Observation (INO) | payer MEDICAID, SELFPAY ==
[2025-02-23] VITALS (15 sets, daily range): BP systolic 110–178; BP diastolic 56–82; PULSE 86–98; RESP 18–98; TEMP 37.1; O2SAT 97–99; BMI 53.8
[2025-02-23 23:43] LABS: Protein Total, Urine 71 mg/dL (1-14)
[2025-02-23] MEDS: BETAMET ACET/BETAMET NA PH (Celestone) 6 MG/ML VIAL 12 MG IM (23:47)
[2025-02-24] LABS: Protein Total, 24 hr Urine 1527 mg/24hr (<149); Protein Total, Urine Volume 2150 mL/24hr (600-1800)
[2025-02-24 00:03] VITALS: PULSE 97; O2SAT 98
== END 2025-02-24 01:55 | disposition home or self-care (01) ==
PROVIDERS: Admitting Provider Obstetrics & Gynecology; Visit Provider Advanced Practice Midwife
DX: Z34.03 Encounter for supervision of normal first pregnancy, third trimester (principal); Z3A.30 30 weeks gestation of pregnancy
CPT/HCPCS: 59025; 59899; 84156; 96372; J0702

== ENCOUNTER 2025-03-11 13:21 | Outpatient (AMB) | payer BC, MEDICAID, SELFPAY ==
[2025-03-11 13:29] VITALS: BP 142/85; PULSE 103; RESP 18; TEMP 36.2; O2SAT 98
--- NOTE | 2025-03-11 13:29 | OBCLNT_ITS ---
Vital Signs 03/11/25 13:29 Weight 160.572 kg Weight Measurement Method Standing Scale BP 142/85 H Blood Pressure Source Automatic Cuff Blood Pressure Location Left Upper Arm Position Sitting Respiration 18 Pulse 103 H Pulse Source Monitor Temp 97.2 F Temp Source Oral Pulse Oximetry (%) 98 Oxygen Delivery Method Room Air Allergies/Home Meds Allergies & Medications Allergies vancomycin Allergy (Verified 03/11/25 13:31) Medication Reconciliation aspirin 81 mg tablet,delayed release (Adult Aspirin Regimen) 81 mg PO QDAY #60 tabs 11/20/24 [Rx Confirmed 03/11/25] vits no.130-ferrous fum 27 mg iron-folic acid 800 mcg tablet ( Vitamin) 1 tab PO QDAY 02/22/25 [History Confirmed 03/11/25] Intake Visit Data Collection New Patient or Established: Established Patient (seen at [facility] within 3 years) Reason for Visit:: OBC Seen by Clinical Staff ONLY (RN/MA): No Machine Pie Maker Required: No Do You Feel Safe at Home: Yes Authorities Contacted: N/A PCP or OBGYN visit in last 3 months: Yes Date of Last PCP or OBGYN visit: 02/24/25 Hx Now: Yes Are you currently on any form of Control: No Pain Present Currently: No Pain Scale Used: Laguerre-Kay/Numerical Pain scale:: 0 Smoking Status Smoking Status: Never smoker Immunizations Flu Vaccine in the Last 12 Months: No Flu Vaccine Exclusion Criteria: Already Received Questionnaires Covid-19 Vaccine Questionnaire Has patient been vacinated for Covid-19 Have you been vacinated for Covid-19: Yes PHQ-9 PHQ-2 Over the last 2 weeks, how often have you been bothered by any of the following problems? 1. Little interest or pleasure in doing things: not at all 2. Feeling down, depressed, or hopeless: not at all Total score: 0 PHQ-9 3. Trouble falling or staying asleep, or sleeping too much: Not at all 4. Feeling tired or having little energy: Not at all 5. Poor appetite or overeating: Not at all 6. Feeling bad about yourself - or that you are a failure or have let yourself or your family down: Not at all 7. Trouble concentrating on things, such as reading the newspaper or watching television: Not at all 8. Moving or speaking so slowly that other people could have noticed? - Or the opposite - being so fidgety or restless that you have been moving around a lot more than usual: not at all 9. Thoughts that you would be better off or of hurting yourself in some way: Not at all Total score: 0 If you checked off any problems, how difficult have these problems made it for you to do your work, take care of things at home, or get along with other people?: not difficult at all Source: Developed by Drs. Teddy Hester, Indira Polk, Myke Guerrero and colleagues, with an educational jacque from [employer]. Depression screen completed yes Social History Living Situation History Marital Status: Single Lives With: Family Housing: House Tobacco History Smoking Status: Never smoker Second Hand Smoke Exposure: No Alcohol History Alcohol Intake: Never Domestic Abuse History Do You Feel Safe at Home: Yes Care OB Visit Log OB Flowsheet Initial Weight: Not Recorded Date -?-?-?-?-?-?-?-?-?-?-?-?- EGA Weight BP Alb Glu CTX Pres Fundal ht FHR Mov Dilation Station Effacement Hx Notes Visit Note 11/20/24 -?-?-?-?-?-?-?-?-?-?-?-?- 16w 5d 153.938 kg 121/81 121/81 absent unknown 17 156 active 26-week 1 para 0 for OBI. Heather garza is a transfer from [facility] to [facility] with records. She had an ER visit for bleeding and patient was given RhoGAM x 1. She denies bleeding now. 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 Reports slight movement Schedule anatomy scan with MFM. Start low-dose baby aspirin. Discussed SAB and labor precautions. Increase fluids. I discussed and offered NIPT and AFP. Patient declined at this time but she will review information and make a decision. Continue prenatals increase fluids return in 4 weeks OB check 11/29/24 -?-?-?-?-?-?-?-?-?-?-?-?- 18w 0d 153.881 kg 134/84 absent unknown 18 156 absent Complains of increased vomiting every 3 hours and inability to stay at work. Denies SAB complaints. Denies signs or symptoms of PIH. Reports light movement. MFM appointment is pending. c/o dysuria and frequency Discussed comfort measures for nausea and vomiting. Dry diet. SAB precautions. Tylenol as needed. Reviewed PIH precautions. I ordered Zofran 8 mg every 8 hours as needed for nausea and vomiting. Notes for 2 missed days of work including today. Urine culture for UTI. Macrobid 100 twice daily x 7 days. Increase fluids as able. Return in 4 weeks OB check. aFP today., return in 4 week 12/19/24 -?-?-?-?-?-?-?-?-?-?-?-?- 20w 6d 154.845 kg 134/82 absent unknown 20 145 active refused NIPT/carrier screen. forgot to do ob panel. denies VB/LOF and UC. reporte + FM. boy. MFM pending f/u on mfm, OB p marianne with 3rd tri lab, A1c and CMP. discuss diet and weight. PTL ptecaution, rtc 4 week 01/29/25 -?-?-?-?-?-?-?-?-?-?-?-?- 26w 5d 156.716 kg 128/84 absent unknown 26 145 active Reports movement. Denies leaking, bleeding, contractions. Patient denies signs and symptoms of preeclampsia. Denies epigastric pain. Denies headache. Patient has maternal- medicine appointment scheduled for February 18. Patient reports that she bought a blood pressure cuff and was taking her blood pressures at home several days ago. She states that she got several high readings and overall and did not know what to do. Keep appointment for maternal- medicine February 18. Discussed labor precautions. I reviewed normal parameters of blood pressure with patient. Discussed danger signs and symptoms and ER precautions. And I discussed signs symptoms of preeclampsia. Continue low-dose baby aspirin. Increase fluids. Patient was advised that should she check her blood pressure and the blood pressure is 140/90 she needs to go right to the ER. Return in 2 weeks for OB check and RhoGAM Keep appointment for materna l- medicine February 18. Discussed labor precautions. I reviewed normal parameters of blood pressure with patient. Discussed danger signs and symptoms and ER precautions. And I discussed signs symptoms of preeclampsia. Continue low-dose baby aspirin. Increase fluids. Patient was advised that should she check her blood pressure and the blood pressure is 140/90 she needs to go right to the ER. Return in 2 weeks for OB check and RhoGAM, Do PIH panel nv and 24 hr protien 02/20/25 -?-?-?-?-?-?-?-?-?-?-?-?- 29w 6d 160.628 kg 126/84 absent 28 145 a ctive Reports movement. Patient did her third trimester labs. Results are pending. Results for MFM are pending. Patient has a follow-up ultrasound and the end of the month. Keep appointment with maternal- medicine. RhoGAM given today. I will review the labs and her sono when I get the results. Discussed labor precautions schedule NST BPP to start at 32 weeks. Return in 3 weeks OB check 03/11/25 -?-?-?-?-?-?-?-?-?-?-?-?- 32w 4d 160.572 kg 142/85 absent unknown [address] Lynch is still pending. Dr. Lynch's office says they should be calling the patient in a week. NST BPP is pending as well. Reports good movement. Patient reports that when she checks her blood pressures at home they are 120s over 80s. Denies headache or signs PIH. Denies leaking, bleeding, contractions Appointment with Dr. Lynch and transfer is pending. We gave patient information about that today discussed labor precautions and kick count. Tdap today. And patient has a follow-up appointment with MFM pending as well discussed diet, weight loss and we discussed PIH precautions and parameters. Return in 2 weeks if patient still has not scheduled Dr. Rosendo LEES Calculator Estimated Delivery Date Method Current WG Current Estimate 05/02/25 Ultrasound #1 32w 4d Other Estimates 04/20/25 LMP (Uncertain) 34w 2d 05/02/25 Ultrasound #2 32w 4d 05/02/25 Manual 32w 4d final wilman: , 02/18 EFW:21% Comments: 03/11; MFM appointment and transfer to Dr. Lynch is pending still Notes Visit Date: 02/20/25 Last Updated by: Ivet Diaz CNM 02/20: RHOGAM today Reviewed history and notes with patient at visit, tracheostomy 2007 at 7 yo. patient was treated for an infection and became septic. She developed renal failure and needed dialysis. 24 hr urine: protein elevated: total volume: 2150. total protein: 71, urine total protein 24 hr: 1.5 gm. BP were mild. UPCR for 24 hr: 1.8. BMI: 57. referal made to Dr Lynch/[facility] for total patient care and management Visit Date: 01/29/25 Last Updated by: Ivet Diaz CNM OB panel: A-, ABS-, RHOGAM given @ 16 week> 09/08/24 in ER, RPR::NR, rub Non imm, hbsag-,hiv-,HC-, GC/CT-UT-, 1 hr gtt: , A!; 5.6, pap: normal Patient refused NIPT/AFP, CF- Visit Date: 12/19/24 Last Updated by: Ivet Diaz CNM 24 yo ,. no Dates. 1st OB sono: 10/10/24: 10w6. EDC: 05/02/25 Visit Date: 11/29/24 Last Updated by: Ivet Diaz CNM declined NIPT Visit Date: 11/20/24 Last Updated by: Ivet Diaz CNM 24 yo . irregular menses. lmp 07/14/24, 1st OB sono: 10/10/24: IUP 10w6, EDC 05/02/25, OB panel: Pap: neg, + clue and cocci/not tx, A-/ABS-. Rhogam given in ER. HBSAG-,HIV-, HC-, rub IMM, RPR::NR, GC/CT-, carrier screen: SMA/CF-, early 1 hr gtt: 111, a1c: 5.3., /335, UT-. 11/20: Patient is RH-, Give RHOGAM at 28 week Office Procedures OBC Clinic LOC & Office Proc's Nursing/Assessment Patient Status: Established Patient OB Clinic Nursing Assessment: Medication Reconciliation, Update PMH in EMR and Vital Signs OB Clinic Coordination of Care: Complex Care and Chronic Disease 1-5, Consent,records obtained, informed consent, Education Simp Pt/Fam, 1 Ins Authorization, Lab and Imaging orders, Results/Orders obtained and Staff clarify orders Special Needs: Heart tones Established Patient Charge Established Patient Point Assignment: 150 Established Patient Point Charge: EP Level 4 (120-155) Injection/Vaccine Admin SQ Im Injection: Yes Immunizations diphth,pertus(acell),tetanus 2.5 Lf unit-8 mcg-5 Lf/0.5mL IM syringe Performing Provider: Ivet Diaz CNM Performing Location: [facility] Administered by: Abby Rodríguez MA on 03/11/25 16:24 Dose Route Admin Location Dispensed Lot Number Expiration Date Pack age [facility] [place] Minilab Operator 0.5 mL IM Right Deltoid 0.5 mL [id number] 03/29/27 97651-468-98 [id number] [employer] VIS Given Date VIS Provided VIS Publication Date 03/11/25 Single Vaccine 24 Eligibility Eligibility Date Funding Source Public Non-[facility] Assessment & Plan Diagnosis / Problem List (1) Gestational edema with proteinuria without hypertension during in third trimester: Status: Acute (2) Obesity complicating , third trimester: Status: Acute (3) Encounter for supervision of high risk in third trimester, antepartum: Status: Acute Plan Follow-up with Dr. Lynch is done today. Dr. Lynch received the referral for transfer of care and appointment is pending. NST BPP appointment pending. Discussed labor precautions and kick count. Tdap today. Discussed diet and weight loss. Follow-up as scheduled with MFM return in 2 weeks OB check if patient has not been to see Dr. Lynch Additional Plan Follow Up: 2 Weeks (obc)
== END 2025-03-11 14:15 | disposition home or self-care (01) ==
LOC: HODSOBC 13:21
PROVIDERS: Supervising Provider Advanced Practice Midwife; Visit Provider Advanced Practice Midwife
DX: O09.893 Supervision of other high risk pregnancies, third trimester (principal); O12.23 Gestational edema with proteinuria, third trimester; O99.213 Obesity complicating pregnancy, third trimester; Z3A.32 32 weeks gestation of pregnancy; Z23 Encounter for immunization; Z88.1 Allergy status to other antibiotic agents
CPT/HCPCS: 90471; 90715; 96372; 99213; 99214; G0463

== ENCOUNTER 2025-03-19 14:18 | Outpatient (RCR) | payer BC, SELFPAY ==
--- NOTE | 2025-03-19 14:28 | XR_ITS ---
Examination: Biophysical profile, ultrasound Date and time of exam: March 19, 2025, 1433 hours INDICATIONS: Diagnosis maternal obesity Technique: Multiple transabdominal sonographic images of the pelvis abdomen obtained. Attention is directed to the breathing movement, gross body movement, amniotic fluid volume and tone. Findings: Amniotic fluid index 10.4 cm Total biophysical profile is 8 of 8. breathing movement is 2. Gross body movement is 2. tone is 2. Qualitative amniotic fluid volume is 2 Impression: Biophysical profile is 8 of 8.
[2025-03-19 14:58] VITALS: BP 134/81; PULSE 105; RESP 20; TEMP 36.8
== END 2025-03-19 23:59 | disposition home or self-care (01) ==
LOC: S4S1 14:18
PROVIDERS: Referring Provider Advanced Practice Midwife; Visit Provider Advanced Practice Midwife
DX: O09.93 Supervision of high risk pregnancy, unspecified, third trimester (principal); O99.213 Obesity complicating pregnancy, third trimester; E66.01 Morbid (severe) obesity due to excess calories; Z3A.33 33 weeks gestation of pregnancy
CPT/HCPCS: 59025; 76819